=== PATIENT | female | born 1960 | race Caucasian/White ===

== ENCOUNTER 2016-08-06 08:03 | Day surgery (SDC) | payer BC ==
--- NOTE | ~2016-08-06 | OP ---
Record Of Operation [facility] [address] [place]. [address] NAME: ANDIE SULLIVAN : 56 STATUS : [place] [facility] [place] PAT#: [id number] AGE: 55 ADM/REG DATE : 08/06/16 MR#: [id number] REPORT SERV DATE: 08/06/16 DICTATED BY: TANNER BAKER JR. DATE: 08/06/16 REPORT STATUS : Draft TRANSCRIBED BY: MODL DATE: 08/06/16 DATE OF PROCEDURE: REASON FOR SURGERY: This 55-year-old patient presents with a biopsy-proven malignancy of the right breast. It is in the far superior portion of the right breast and far removed from a breast prosthesis that was placed years ago. The lesion does have near attachment to the undersurface of the skin. It is in the decompressive sulcus high in the apex of the right breast, compressed between the underlying muscle and overlying skin. The patient had been counseled extensively and postoperative radiation therapy will certainly be in order. The tumor is low-grade, favorable, and small, and she will probably be able to avoid chemotherapy as adjuvant therapy will not impact her very high survival right. PREOPERATIVE DIAGNOSIS: Carcinoma of the right breast. POSTOPERATIVE DIAGNOSIS: Carcinoma of the right breast. SURGEON: Tanner Baker M.D. SURGERY PERFORMED: [place] node localization followed by right breast segmentectomy and sentinel node removal. DESCRIPTION OF PROCEDURE: The patient was initially injected in the nuclear medicine facility. She was taken to the operating room, and under general anesthesia, she was prepped and draped in supine position in the usual sterile fashion. A curvilinear ellipsis fashioned over the palpable mass on the superior right breast. The incision was made and flaps were elevated to incorporate the mass with a generous amount of normal tissue surrounding. The specimen was removed and oriented for Pathology. Initial sectioning showed close margins at the undersurface of the subcutaneous tissue just above and below the skin as would be anticipated. These were close, but clear margins and as the are superficial, this was acceptable under guidelines. A small 2 mm nodule was felt under the dermis and on the inferior margin and shave biopsy was taken, but this appeared to be part of the biopsy tract. The wound was irrigated, and hemostasis was obtained. The wound was closed with two layers of Monocryl. Attention was turned to the right axilla. With the help with the gamma probe, a small curvilinear incision was made and vertical dissection was carried down to a small active node, and an adjacent small inactive node was also removed as a nonsentinel node. Readings are as recorded in the surgical log book. The wound was irrigated, and hemostasis was obtained. The wound was closed with two layers of Monocryl. The patient tolerated the procedure well without complication, ESTIMATED BLOOD LOSS: Less than 10 mL. Record Of Operation [address] [address] NAME: ANDIE SULLIVAN : 56 STATUS : [place] [facility] [place] PAT#: [id number] AGE: 55 ADM/REG DATE : 08/06/16 MR#: [id number] REPORT SERV DATE: 08/06/16 DICTATED BY: TANNER BAKER JR. DATE: 08/06/16 REPORT STATUS : Draft TRANSCRIBED BY: LORIN DATE: 08/06/16 SPONGE COUNT: Correct. /LORIN Tanner Baker Jr., M.D. / [id number] CC: Molly Andrews Jr. [facility]
[~2016-08-06 08:03] MED LIST: *DENIES
== END 2016-08-06 12:50 | disposition home or self-care (01) ==
LOC: SDC 08:03
PROVIDERS: Surgery Surgical Oncology
PROC: 07B50ZZ Excision of Right Axillary Lymphatic, Open Approach (ICD-10-PCS; 2016-08-06)
PROC: 0HBT0ZZ Excision of Right Breast, Open Approach (ICD-10-PCS; principal; 2016-08-06 07:45)
DX: C50.911 Malignant neoplasm of unspecified site of right female breast (principal); Z17.0 Estrogen receptor positive status [ER+]; Z88.2 Allergy status to sulfonamides; Z88.1 Allergy status to other antibiotic agents; Z90.710 Acquired absence of both cervix and uterus; Z98.890 Other specified postprocedural states
CPT/HCPCS: 71020; 78195; 80053; 85025; 88305; 88307; 88331; 88342; 93005; A9270-GY; A9541; J0690; J2250; J2270; J2405; J3010